=== PATIENT | female | born 1960 | race African-American/Black ===

== ENCOUNTER 2017-01-03 23:04 | Emergency (ER) | payer OTHER ==
[~2017-01-03] VITALS: Ht 160 cm; Wt 78.0 kg
[~2017-01-03 23:04] MED LIST: BACL-141; CALC-4; HYDROCHLOROTHIAZIDE; LISI10TA5; QUET25TA PO; SIMV20TA6; TRAM50TA73
[2017-01-04] MEDS ORDERED: IBUPROFEN 800MG TABLET PO ONE (06:45)
[2017-01-04] MEDS ORDERED: LIDOCAINE HCL 1% 20ML VIAL (Pyxis) INJ INFIL ONE (06:45)
[2017-01-04] MEDS ORDERED: SODIUM CHLORIDE 0.9% 250 ML IV ONE (06:45)
[2017-01-04] MEDS ORDERED: TETRACAINE 0.5% OPHTH DROPS 4ML LEFTEYE ONE (07:45)
[2017-01-04] MEDS ORDERED: FLUORESCEIN SODIUM 1MG/STRIP ONE (10:59)
[2017-01-04 12:05] VITALS: BP 126/76
== END 2017-01-04 12:20 | disposition home or self-care (01) ==
LOC: ER 23:04
DX: S50.812A Abrasion of left forearm, initial encounter (principal); S05.02XA Injury of conjunctiva and corneal abrasion without foreign body, left eye, initial encounter; S60.512A Abrasion of left hand, initial encounter; W01.0XXA Fall on same level from slipping, tripping and stumbling without subsequent striking against object, initial encounter; Y93.E9 Activity, other interior property and clothing maintenance; Y92.098 Other place in other non-institutional residence as the place of occurrence of the external cause; I10 Essential (primary) hypertension; F20.9 Schizophrenia, unspecified; Z86.59 Personal history of other mental and behavioral disorders
CPT/HCPCS: 73090; 73130; 99284; J3490; J7050; X7700; Z7610

== ENCOUNTER 2018-04-11 11:11 | Emergency (ER) | payer MEDICARE, MEDICAID ==
[~2018-04-11] VITALS: Ht 160 cm; Wt 80.0 kg
[~2018-04-11 11:11] MED LIST changes: -TRAM50TA73; +TRAM50TA94
[2018-04-11] MEDS ORDERED: IBUPROFEN 600MG TABLET PO ONE (16:15)
[2018-04-11 16:48] VITALS: BP 132/68
== END 2018-04-11 16:58 | disposition home or self-care (01) ==
LOC: ER 11:11
DX: M25.572 Pain in left ankle and joints of left foot (principal); F32.9 Major depressive disorder, single episode, unspecified; I10 Essential (primary) hypertension; F20.9 Schizophrenia, unspecified; F17.200 Nicotine dependence, unspecified, uncomplicated
CPT/HCPCS: 99283

== ENCOUNTER 2018-06-15 20:06 | Emergency (ER) | payer MEDICARE, MEDICAID ==
[~2018-06-15] VITALS: Ht 160 cm; Wt 78.0 kg
[2018-06-15] MEDS ORDERED: TETRACAINE 0.5% OPHTH DROPS 4ML BOTHEYE ONE (22:45)
[2018-06-15] MEDS ORDERED: FLUORESCEIN SODIUM 1MG/STRIP BOTHEYE ONE (22:45)
[2018-06-15 23:50] VITALS: BP 128/76
== END 2018-06-16 00:05 | disposition home or self-care (01) ==
LOC: ER 22:51
DX: S05.02XA Injury of conjunctiva and corneal abrasion without foreign body, left eye, initial encounter (principal); S05.01XA Injury of conjunctiva and corneal abrasion without foreign body, right eye, initial encounter; I10 Essential (primary) hypertension; E78.00 Pure hypercholesterolemia, unspecified; Z79.899 Other long term (current) drug therapy; X58.XXXA Exposure to other specified factors, initial encounter; Y93.89 Activity, other specified; Y92.89 Other specified places as the place of occurrence of the external cause; Y99.8 Other external cause status
CPT/HCPCS: 99283

== ENCOUNTER 2018-08-31 18:09 | Emergency (ER) | payer MEDICARE, MEDICAID ==
[~2018-08-31] VITALS: Ht 160 cm; Wt 79.0 kg
[2018-08-31] MEDS ORDERED: IBUPROFEN 800MG TABLET PO ONE (19:45)
[2018-08-31 19:56] VITALS: BP 134/72
== END 2018-08-31 23:30 | disposition home or self-care (01) ==
LOC: ER 20:45
DX: R22.0 Localized swelling, mass and lump, head (principal); I10 Essential (primary) hypertension; E78.00 Pure hypercholesterolemia, unspecified; F32.9 Major depressive disorder, single episode, unspecified
CPT/HCPCS: 99282; 99283

== ENCOUNTER 2019-07-25 17:04 | Emergency (ER) | payer MEDICARE, OTHER ==
[~2019-07-25] VITALS: Ht 160 cm; Wt 79.0 kg
[2019-07-25 17:12] VITALS: BP 116/80
[2019-07-25] MEDS ORDERED: TETANUS, DIPHTHERIA, PERTUSSIS VAC/PF 0.5ML (>7YR OLD) IM ONE (20:00)
== END 2019-07-25 20:18 | disposition home or self-care (01) ==
LOC: ER 17:04
DX: S70.311A Abrasion, right thigh, initial encounter (principal); E78.00 Pure hypercholesterolemia, unspecified; I10 Essential (primary) hypertension; F32.9 Major depressive disorder, single episode, unspecified; W22.8XXA Striking against or struck by other objects, initial encounter; Y93.89 Activity, other specified; Y92.512 Supermarket, store or market as the place of occurrence of the external cause
CPT/HCPCS: 90471; 90715; 99283

== ENCOUNTER 2020-12-23 17:20 | Emergency (ER) | payer MEDICARE, OTHER ==
[~2020-12-23] VITALS: Ht 160 cm; Wt 74.0 kg
[~2020-12-23 17:20] MED LIST changes: +LISI10TA26; -LISI10TA5; +SIMV-43; -SIMV20TA6
[2020-12-23] MEDS: TETANUS, DIPHTHERIA, PERTUSSIS VAC/PF 0.5ML (>7YR OLD) IM ONE (18:22)
[2020-12-23] MEDS: LIDOCAINE HCL 1% 20ML VIAL (Pyxis) INJ INFIL ONE (18:22)
[2020-12-23 19:29] VITALS: BP 145/78
== END 2020-12-23 19:30 | disposition home or self-care (01) ==
LOC: ER 17:50
DX: S61.211A Laceration without foreign body of left index finger without damage to nail, initial encounter (principal); E78.00 Pure hypercholesterolemia, unspecified; I10 Essential (primary) hypertension; W26.0XXA Contact with knife, initial encounter; Y93.G3 Activity, cooking and baking; Y92.89 Other specified places as the place of occurrence of the external cause; Y99.8 Other external cause status
CPT/HCPCS: 12001; 90471; 90715; 99283; J3490

== ENCOUNTER 2021-01-01 11:17 | Emergency (ER) | payer MEDICARE, OTHER ==
[~2021-01-01] VITALS: Ht 165.1 cm; Wt 80.0 kg
[2021-01-01 11:21] VITALS: BP 134/82
== END 2021-01-01 12:39 | disposition home or self-care (01) ==
LOC: ER 11:17
DX: Z48.02 Encounter for removal of sutures (principal)
CPT/HCPCS: 99281

== ENCOUNTER 2021-09-10 12:49 | Emergency (ER) | payer MEDICARE, OTHER ==
[~2021-09-10] VITALS: Ht 160 cm; Wt 77.0 kg
[2021-09-10 13:28] VITALS: BP 116/73
[2021-09-10 16:58] LABS: CLARITY URINE CLEAR (CLEAR); COLOR URINE YELLOW (YELLOW); KETONES URINE NEGATIVE (NEGATIVE); LEUKOCYTE ESTERASE URINE 2+ (NEGATIVE); NITRITE URINE NEGATIVE (NEGATIVE); OCCULT BLOOD URINE TRACE (NEGATIVE); PROTEIN URINE NEGATIVE (NEGATIVE); UROBILINOGEN URINE 0.2 E.U./dL (0.2-1.0)
[2021-09-10] MEDS ORDERED: NITR100C MT (17:53)
== END 2021-09-10 18:12 | disposition home or self-care (01) ==
LOC: ER 12:49
DX: N39.0 Urinary tract infection, site not specified (principal); J06.9 Acute upper respiratory infection, unspecified; I10 Essential (primary) hypertension; E78.00 Pure hypercholesterolemia, unspecified; F32.A Depression, unspecified
CPT/HCPCS: 81003; 99283

== ENCOUNTER 2022-11-30 13:40 | Emergency (ER) | payer MEDICARE, MEDICAID ==
[~2022-11-30] VITALS: Ht 167.6 cm; Wt 80.0 kg
[~2022-11-30 13:40] MED LIST changes: +NITR100C MT
[2022-11-30] MEDS ORDERED: NIRM1TAB PO (16:58)
[2022-11-30 17:31] VITALS: BP 123/65
== END 2022-11-30 17:31 | disposition home or self-care (01) ==
LOC: ER 13:40
DX: U07.1 COVID-19 (principal); E78.00 Pure hypercholesterolemia, unspecified; I10 Essential (primary) hypertension
CPT/HCPCS: 99283

== ENCOUNTER 2024-01-23 22:08 | Emergency (ER) | payer MEDICARE, MEDICAID ==
[~2024-01-23] VITALS: Ht 160 cm; Wt 90.0 kg
[~2024-01-23 22:08] MED LIST changes: +NIRM1TAB PO
[2024-01-23 22:11] VITALS: O2SAT 100
[2024-01-24] MEDS ORDERED: AMOX-494 MT (00:08)
[2024-01-24 01:15] VITALS: BP 131/72; PULSE 99; RESP 16; TEMP 98.4
== END 2024-01-24 01:15 | disposition home or self-care (01) ==
LOC: ER 22:08
DX: K08.89 Other specified disorders of teeth and supporting structures (principal); F32.A Depression, unspecified; E78.00 Pure hypercholesterolemia, unspecified; I10 Essential (primary) hypertension
CPT/HCPCS: 99283